=== PATIENT | male | born 1985 | race Two or more races ===

== ENCOUNTER 2020-11-28 14:32 | Emergency (ER) | payer MEDICAID, OTHER ==
[~2020-11-28] VITALS: Ht 175.3 cm; Wt 72.6 kg
[2020-11-28 17:01] VITALS: BP 100/70
== END 2020-11-28 17:03 | disposition home or self-care (01) ==
LOC: ER 14:32
DX: G44.009 Cluster headache syndrome, unspecified, not intractable (principal); F41.9 Anxiety disorder, unspecified; F17.210 Nicotine dependence, cigarettes, uncomplicated
CPT/HCPCS: 70450